=== PATIENT | female | born 1985 | race Caucasian/White ===

== ENCOUNTER 2018-11-18 16:24 | Emergency (ER) | payer BC, SELFPAY ==
[2018-11-18 16:25] VITALS: BP 164/99; PULSE 79; RESP 18; TEMP 36.4; O2SAT 97; BMI 54.9
[2018-11-18 16:36] VITALS: BP 153/102; PULSE 82; RESP 18; O2SAT 99
--- NOTE | 2018-11-18 16:52 | ED.VISSUMM ---
- ER Visit Summary Date of Service: 11/18/18 Chief Complaint: Anxiety History of Present Illness: The patient is a 33 F who presents with anxiety and states she is on an emotional roller coaster. Patient states her left her 2 days ago. She has been crying, had poor sleep, decreased p.o. intake. She has had good support from her parents who live across the street from her. She denies suicidal ideation. Patient does report falling down approximate 8 steps yesterday after losing her footing. She denies that this was an attempt to harm herself. She has mild pain over the posterior right thigh, but she states is able to ambulate without difficulty. Physical Examination: Vital signs significant for blood pressure of 153/102. Patient is sitting upright in bed. She is intermittently tearful. Is regular rate and rhythm. Lung sounds clear. Abdomen is soft nontender. Psychiatric evaluation reveals that she is adamantly tearful. She does appear slightly anxious. She denies suicidal or homicidal ideation. Test Results: [] Emergency Department Course and Treatment: Patient be given 1 mg of p.o. Ativan here. Should be given a prescription for a short course of medication. She was warned about the sedating side effects. We will provide her fourth phone numbers for both behavioral health as well as the counseling center for close follow-up. Treatment Plan: [] Disposition: Discharge Impression: Anxiety This note was generated with [employer] dictation software. It may contain incorrect words, spelling, and punctuation that were not noted in review of the chart prior to signing ED Disposition - Plan for ED Patient: Referrals: Chris Randolph [Primary Care Provider] -
--- NOTE | 2018-11-18 16:56 | DCINST.ED_ITS ---
ED Disposition - Plan for ED Patient: Disposition: Home or Assisted Living Instructions: ED Stress React Prescriptions: Lorazepam [Ativan] 1 mg PO TID #10 tablet Referrals: Counseling,Center [GROUP OF PHYSICIANS] - Behavioral,Health [facility] [GROUP OF PHYSICIANS] - Tiffani Olivares MD [STAFF PHYSICIAN] -
[2018-11-18] MEDS: LORazepam 1 MG Tablet PO (17:01)
[2018-11-18 17:03] VITALS: BP 144/83; PULSE 78; RESP 18
== END 2018-11-18 17:27 | disposition home or self-care (01) ==
LOC: ED 17:20
PROVIDERS: Emergency Provider Emergency Medicine
DX: F41.9 Anxiety disorder, unspecified (principal); I10 Essential (primary) hypertension; Z72.0 Tobacco use; Z79.84 Long term (current) use of oral hypoglycemic drugs; Z79.899 Other long term (current) drug therapy
CPT/HCPCS: 99283

== ENCOUNTER → 2018-12-19 | Outpatient (CLI) | payer BC, SELFPAY ==
--- NOTE | 2018-12-19 16:45 | MRI_ITS ---
STUDY: MRI LUMBAR SPINE WITH AND WITHOUT CONTRAST REASON FOR EXAM: Female, 33 years old. Low back pain with right radiculopathy, postsurgical changes at L4-5 TECHNIQUE: Standardized fat and water weighted pulse sequences were obtained in the sagittal and axial planes. 20 IV Dotarem was administered for the contrast portion of the examination. COMPARISON: June 17, 2014 FINDINGS: T12-L1: Normal endplates. Normal disc height, hydration and morphology. Normal bilateral facet joints. Normal central canal and bilateral lateral recesses. Normal bilateral intervertebral neural foramina. Normal lumbar lordosis. There is no substantial scoliosis. Normal conus medullaris that terminates at T12-L1 L1-2: Normal endplates. Normal disc height, hydration and morphology. Normal bilateral facet joints. Normal central canal and bilateral lateral recesses. Normal bilateral intervertebral neural foramina. L2-3: Normal endplates. Normal disc height, hydration and morphology. Normal bilateral facet joints. Normal central canal and bilateral lateral recesses. Normal bilateral intervertebral neural foramina. L3-4: Normal endplates. Narrowed disc space with desiccation of the disc and minimal bulging of the annulus.. Normal bilateral facet joints. Normal central canal and bilateral lateral recesses. Minor bilateral neural foraminal encroachment. L4-5: Status post right laminectomy Normal endplates. Normal disc height, desiccation and mild annular bulge in association with prominent broad-based right paracentral/posterolateral disc protrusion. Bilateral facet arthropathy and thickening of ligamenta flava.. Mild narrowing of the central canal and moderate narrowing of the right lateral recess. Mild bilateral neuroforaminal encroachment. There is enhancing epidural fibrosis in the right anterior lateral epidural space following contrast injection. L5-S1: Normal endplates. Normal disc height, hydration and tiny broad-based central disc protrusion. Normal bilateral facet joints. Normal central canal and bilateral lateral recesses. Normal bilateral intervertebral neural foramina. Normal visualized sacral ala. Normal visualized paraspinous soft tissue structures. Findings are similar to that seen on prior study MRI/Spine Lumbar W/WO Contrast IMPRESSION: Postsurgical changes at L4-5 status post right laminectomy and microdiscectomy. Findings consistent with recurrent right paracentral/posterolateral disc protrusion creating stenosis of the right lateral recess and association with facet arthropathy and thickening of ligamenta flava.. There is also mild postsurgical epidural fibrosis Minimal bulging of the annulus at L3-4 and tiny broad-based central disc protrusion at L5-S1 Other findings as above Electronically Signed: Ellis Newell MD at 17:42 EDT , Service support ,
== END | disposition home or self-care (01) ==
PROVIDERS: Referring Provider Psychiatry & Neurology Pain Medicine; Visit Provider Psychiatry & Neurology Pain Medicine
DX: M51.26 Other intervertebral disc displacement, lumbar region (principal); M54.17 Radiculopathy, lumbosacral region
CPT/HCPCS: 72158; A9575

== ENCOUNTER 2019-03-26 14:34 | Emergency (ER) | payer BC, SELFPAY ==
[2019-03-26 14:34] VITALS: BP 161/87; PULSE 94; RESP 18; TEMP 36.8; O2SAT 99; BMI 49.0
--- NOTE | 2019-03-26 15:16 | ED.DCSUM_ITS ---
History of Present Illness Chief Complaint: Diarrhea Informant: Patient, PCP - Abdominal Pain/Flank Pain Onset: Days - 3 Context: Gradual Onset Timing: Intermittent Quality: Cramping Location: Diffuse Current Severity: Mild Maximum Severity: Moderate Relieved by: - - having BM - Nausea/Vomiting/Emesis GI Symptom: Nausea. Negative for: Vomiting Onset: Days - 3 Severity: Moderate - Diarrhea/Melena/Hematochezia GI Symptom: Diarrhea. Negative for: Melena, Hematochezia Onset: Days - 3 Stool Quality: Watery. Negative for: Mucous, Black, Maroon, MATI per rectum Severity: Severe Associated Symptoms: - - decreased UOP. Negative for: Dysuria, Frequency, Hematuria, Urgency Narrative: Patient has had profuse watery diarrhea around 10-15 episodes per day for the last 3 days. She has not been drinking very much because of feeling nauseated but she has not been vomiting. She was in the doctor's office today being evaluated for this and her blood pressure was 99/68, she has urinated very little today and so they sent her in for fluids out of fear of dehydration. Patient states she is feeling a little bit lightheaded at times but no near syncopal episodes. She has had no known sick contacts. No travel out of the area or country. She drinks city water, not well water and has not been drinking any water from the ground or camping lately. No recent antibiotics for any reason, nor hospitalization or surgery. No fevers. No history of this or other GI disorders except for reflux for which she takes medication. She also takes lisinopril for blood pressure which she has been compliant with. - Past Medical History (1) Hypertension Status: Chronic (2) GERD (gastroesophageal reflux disease) Status: Chronic Past Medical History - Allergies and Home Meds Allergies/Adverse Reactions: Allergies naproxen Allergy (Verified 11/18/18 16:27) Itching adhesive Adverse Reaction (Verified 03/26/19 14:36) Other amoxicillin [Amoxicillin] Adverse Reaction (Verified 11/18/18 16:27) Rash Primary Care Physician: [facility] Doctor,Out of [NON-STAFF] - 1-2 Days if not improving Lives: With Family Smoking Status: Never smoker Drugs: None Review of Systems General: Reports: Malaise. Denies: Chills, Fever, Sweats Eyes: Denies: Visual changes - bilaterally, Diplopia ENT: Denies: Rhinorrhea, Sore throat Cardiovascular: Denies: Chest pain, Palpitations Respiratory: Denies: Dyspnea, Cough, Dyspnea on exertion Gastrointestinal: Reports: Abdominal pain, Nausea, Diarrhea. Denies: Vomiting, Melena, Hematochezia Genitourinary: Denies: Dysuria, Hematuria, Frequency Musculoskeletal: Reports: Back pain - Chronic, unchanged. Denies: Extremity Pain Skin: Denies: Rash, Wounds Neurological: Denies: Headache, Weakness, Numbness Physical Exam Vital Signs/Narrative: Vital Signs Temp Pulse Resp BP Pulse Ox 03/26/19 14:34 98.2 F 94 18 161/87 H 99 Inital Vital Signs reviewed: Yes General: Well nourished, Well developed, Obese, No Acute Distress Head: Normocephalic, Atraumatic Eyes: Perrl, EOMI ENT: Moist mucous membranes, No rhinorrhea Neck: Supple, Nontender Cardiovascular: Regular rate, Regular rhythm, No murmurs. Negative for: Tachycardia Respiratory: No distress, CTA bilaterally, Chest nontender Abdomen: Soft, Nontender, Nondistended, Normal bowel sounds Back: Nontender, Normal Inspection. Negative for: CVA tenderness Extremities: Nontender, No edema. Negative for: Calf Tenderness Skin: Normal color, No rash, No Trauma Neurological: Alert, Oriented x3, Cranial nerves II-XII grossly intact, Normal Strength, Normal Sensation Psychological: Normal affect, Normal Mood Diagnostic/Tx/Re-eval Laboratory Tests 03/26/19 03/26/19 Range/Units 15:20 15:13 WBC 7.8 (4.4-11.0) K/mm3 RBC 4.73 (4.2-5.4) M/mm3 Hgb 14.2 (12.0-15.0) g/dL Hct 43.0 (37-47) % MCV 90.9 (81-99) fL MCH 30.0 (27.0-32.0) pg MCHC 33.0 (32-36) g/dL RDW Std Deviation 44.2 H (35.1-43.9) fl RDW Coeff of Rob 13.5 (11.6-14.6) % Plt Count 269 (150-450) K/mm3 MPV 10.1 (6.2-12.0) fl Immature Gran % (Auto) 0.300 (0.0-0.9) % Neut % (Auto) 72.6 H (47-70) % Lymph % (Auto) 19.2 (19-41) % [place] % (Auto) 6.3 (0-10) % Eos % (Auto) 1.2 (0-5) % Baso % (Auto) 0.4 (0-1) % Absolute Neuts (auto) 5.7 (2.0-7.7) X10^3/uL Absolute Lymphs (auto) 1.49 (0.83-4.51) X10^3/uL Nucleated RBC % 0 (0-5) % Sodium 141 (136-145) mmol/L Potassium 3.9 (3.5-5.1) mmol/L Chloride 107 (98-107) mmol/L Carbon Dioxide 27.0 (21.0-32.0) mmol/L Anion Gap 7 (5-15) BUN 10 (7-18) mg/dL Creatinine 0.86 (0.55-1.02) mg/dL Estim Creat Clear Calc 78.84 ml/min Est GFR (MDRD) Af Amer 97 (>60) mL/min Est GFR (MDRD) Non-Af 80 (>60) mL/min BUN/Creatinine Ratio 11.7 (10-20) RATIO Glucose 85 (74-106) mg/dL Calcium 9.0 (8.5-10.1) mg/dL Total Bilirubin 0.30 (0.20-1.00) mg/dL AST 16 (15-37) U/L ALT 23 (13-56) U/L Alkaline Phosphatase 56 (45-117) U/L Total Protein 7.5 (6.4-8.2) g/dL Albumin 3.8 (3.2-5.0) g/dL Globulin 3.7 (2.2-4.2) g/dL Albumin/Globulin Ratio 1.0 (0.9-2.4) RATIO - Medical Decision Making Labs are all normal including white blood count and liver enzymes. She did have diarrhea here and we collected and sent to the lab for an enteric bacterial panel but it is not going to be run while the patient is here. She can follow- up for results of that. In the meantime I think she is safe to take Imodium as needed, in addition to Bentyl which we gave her here and really helped her discomfort, after IV fluid she is feeling much better. Even before the fluids her blood pressure was in the 160s, afterwards it is in the 130s, she clearly is feeling better, ambulatory, and stable for discharge. Possible viral etiology, she has no red flag historical elements since can be safely discharged and treated with supportive care. ED Disposition - Plan for ED Patient: Disposition: Home or Assisted Living Diagnosis: Acute diarrhea, Mild dehydration Instructions: VOMITING AND DIARRHEA, Nonspecific (Adult) Prescriptions: Dicyclomine HCl [Bentyl] 20 mg PO . Q4-6H PRN #20 cap PRN Reason: abdominal pain Prescription Printed Referrals: [facility] Doctor,Out of [NON-STAFF] - 1-2 Days if not improving Additional Instructions: Okay to use Imodium as needed for diarrhea.
[2019-03-26 15:28] VITALS: BP 130/77; PULSE 87; RESP 18; O2SAT 99
[2019-03-26] MEDS: Dicyclomine 10 MG Capsule 20 MG PO (15:31)
[2019-03-26] MEDS: Ondansetron 4 MG/2 ML Vial IV (15:31)
[2019-03-26] MEDS: 0.9% Normal Saline 1,000 ML 999 ML IV (15:31)
[2019-03-26 15:34] LABS: Absolute Lymphocyte Count 1.49 X10^3/uL (0.83-4.51); Absolute Neutrophil Count 5.7 X10^3/uL (2.0-7.7); Basophil# 0.03 X10^3/uL; Basophil% 0.4 % (0-1); Eosinophil# 0.09 X10^3/uL; Eosinophils% 1.2 % (0-5); Hemoglobin 14.2 g/dL (12.0-15.0); Lymphocyte # 1.49 X10^3/ul (4.0); Lymphocyte % 19.2 % (19-41); Mean Corpuscular Volume 90.9 fL (81-99); Mean Platelet Vol. 10.1 fl (6.2-12.0); Monocyte# 0.49 X10^3/uL; Monocyte% 6.3 % (0-10); NRBC Flagged by Analyzer 0 % (0-5); Neutrophil # 5.66 X10^3/uL (2.7-7.7); Neutrophil % 72.6 % (47-70); Platelet Count 269 K/mm3 (150-450); RBC Distribution Width CV 13.5 % (11.6-14.6); RBC Distribution Width SD 44.2 fl (35.1-43.9); Red Blood Count 4.73 M/mm3 (4.2-5.4); White Blood Count 7.8 K/mm3 (4.4-11.0)
[2019-03-26 15:55] LABS: AST(SGOT) 16 U/L (15-37); Alanine Aminotransfer ALT/SGPT 23 U/L (13-56); Albumin, Serum 3.8 g/dL (3.2-5.0); Alkaline Phosphatase 56 U/L (45-117); Anion Gap 7 (5-15); BUN 10 mg/dL (7-18); BUN/Creat Ratio 11.7 RATIO (10-20); Chloride 107 mmol/L (98-107); Creatinine, Serum 0.86 mg/dL (0.55-1.02); EST Glomerular Filtration Rate 80 mL/min (>60); Est Glom Filt Rate - Afr Amer 97 mL/min (>60); Estimated Creatinine Clearance 78.84 ml/min; Globulin 3.7 g/dL (2.2-4.2); Glucose 85 mg/dL (74-106); Potassium 3.9 mmol/L (3.5-5.1); Protein, Total 7.5 g/dL (6.4-8.2); Sodium Level 141 mmol/L (136-145)
[2019-03-26 17:08] VITALS: BP 132/74; PULSE 87; RESP 18; O2SAT 98
[2019-03-26 18:44] VITALS: BP 117/64; PULSE 87; RESP 18; O2SAT 98
== END 2019-03-26 18:45 | disposition home or self-care (01) ==
PROVIDERS: Emergency Provider Emergency Medicine
DX: R19.7 Diarrhea, unspecified (principal); E86.0 Dehydration; R10.9 Unspecified abdominal pain; E66.9 Obesity, unspecified; I10 Essential (primary) hypertension; K21.9 Gastro-esophageal reflux disease without esophagitis; M54.9 Dorsalgia, unspecified; G89.29 Other chronic pain; Z79.899 Other long term (current) drug therapy
CPT/HCPCS: 80053; 85025; 96361; 96374; 99283; J7030; J2405

== ENCOUNTER 2019-04-02 00:20 | Emergency (ER) | payer BC, SELFPAY ==
[2019-04-02 00:20] VITALS: BP 149/85; PULSE 88; RESP 15; TEMP 36.5; O2SAT 100; BMI 48.2
--- NOTE | 2019-04-02 00:38 | ED.DCSUM_ITS ---
- ER Visit Summary Date of Service: 04/02/19 Chief Complaint: Diarrhea, hematochezia History of Present Illness: The patient is a 34 F who presents with a single episode of bright red blood per rectum. Last week she was having severe diarrhea was sent in due to concerns for dehydration. Her blood pressure was normal here although it had been reported as borderline low at an office visit. She her laboratory studies were unremarkable. Enteric pathogen panel for stool was ordered but she had no diarrhea while here. She was discharged with a prescription but says she had no diarrhea after discharge until today she had an episode with some bright red blood. She denies any abdominal pain. No nausea vomiting or fevers. Physical Examination: Afebrile vitals unremarkable No distress Heart regular rate In no respiratory distress Abdomen soft nontender nondistended Rectal exam is nontender no gross bleeding no fissure no hemorrhoid Test Results: CBC BMP unremarkable and INR normal. Emergency Department Course and Treatment: Patient has no evidence of active gross bleeding. Her hemoglobin is normal. She has normal heart rate. She does not have any evidence of ongoing serious bleeding or hemorrhage. She was advised to follow-up as an outpatient. She was advised she may need further work-up such as colonoscopy. She does understand to return for new or worsening symptoms and was instructed on specific signs and symptoms to monitor for and was discharged home. Treatment Plan: [] Disposition: Discharge Impression: Stable rectal bleeding This note was generated with [employer] dictation software. It may contain incorrect words, spelling, and punctuation that were not noted in review of the chart prior to signing ED Disposition - Plan for ED Patient: Referrals: [facility] [Other]
[2019-04-02 00:54] LABS: Absolute Lymphocyte Count 2.42 X10^3/uL (0.83-4.51); Absolute Neutrophil Count 4.2 X10^3/uL (2.0-7.7); Basophil# 0.04 X10^3/uL; Basophil% 0.5 % (0-1); Eosinophil# 0.13 X10^3/uL; Eosinophils% 1.8 % (0-5); Hematocrit 36.3 % (37-47); Hemoglobin 12.1 g/dL (12.0-15.0); Lymphocyte # 2.42 X10^3/ul (4.0); Lymphocyte % 32.9 % (19-41); Mean Corp Hgb Conc 33.3 g/dL (32-36); Mean Corpuscular Hgb 30.7 pg (27.0-32.0); Mean Corpuscular Volume 92.1 fL (81-99); Monocyte# 0.57 X10^3/uL; Monocyte% 7.7 % (0-10); NRBC Flagged by Analyzer 0 % (0-5); Neutrophil # 4.18 X10^3/uL (2.7-7.7); Neutrophil % 56.8 % (47-70); Platelet Count 206 K/mm3 (150-450); RBC Distribution Width CV 13.6 % (11.6-14.6); RBC Distribution Width SD 46.3 fl (35.1-43.9); Red Blood Count 3.94 M/mm3 (4.2-5.4); White Blood Count 7.4 K/mm3 (4.4-11.0)
[2019-04-02 01:03] LABS: Prothrombin Time (Protime)PT. 13.4 SECONDS (11.7-14.9)
[2019-04-02 01:08] LABS: Anion Gap 5 (5-15); BUN 11 mg/dL (7-18); BUN/Creat Ratio 12.7 RATIO (10-20); Calcium,Total 8.2 mg/dL (8.5-10.1); Chloride 108 mmol/L (98-107); Creatinine, Serum 0.87 mg/dL (0.55-1.02); EST Glomerular Filtration Rate 79 mL/min (>60); Est Glom Filt Rate - Afr Amer 95 mL/min (>60); Estimated Creatinine Clearance 77.94 ml/min; Glucose 110 mg/dL (74-106); Potassium 3.5 mmol/L (3.5-5.1); Sodium Level 141 mmol/L (136-145)
--- NOTE | 2019-04-02 01:18 | ED.DEP ---
ED Disposition - Plan for ED Patient: Instructions: RECTAL BLEED, Stable Referrals: [facility] [Other]
[2019-04-02 01:36] VITALS: BP 149/85; PULSE 88; RESP 15; O2SAT 100
== END 2019-04-02 01:36 | disposition home or self-care (01) ==
LOC: ED 01:16
PROVIDERS: Emergency Provider Emergency Medicine
DX: K62.5 Hemorrhage of anus and rectum (principal); R19.7 Diarrhea, unspecified; K21.9 Gastro-esophageal reflux disease without esophagitis; Z90.49 Acquired absence of other specified parts of digestive tract
CPT/HCPCS: 80048; 85025; 85610; 99282

== ENCOUNTER 2020-06-10 22:39 | Emergency (ER) | payer BC, SELFPAY ==
[2020-06-10 22:40] VITALS: BP 160/92; PULSE 70; RESP 20; TEMP 36.8; O2SAT 100; BMI 47.3
--- NOTE | 2020-06-10 22:56 | RAD_ITS ---
STUDY: X-RAY CHEST REASON FOR EXAM: Female, 35 years old. CP WITH PALPITATIONS X 1 DAY TECHNIQUE: Single AP portable view of the chest. COMPARISON: None. FINDINGS: The lungs are clear and expanded. There is no demonstrated pleural abnormality. Normal size heart. Normal mediastinum and dionicio. Normal visualized pulmonary arteries. Normal visualized aortic arch and descending thoracic aorta. Normal visualized thoracic spine. Normal visualized ribs, clavicles, and shoulders. There is no demonstrated abnormality of the visualized soft tissue structures of the upper abdomen. RAD/Chest 1 View (Portable) IMPRESSION: Normal x-ray examination of the chest. Electronically Signed: Leandra Allen MD at 23:20 EDT Tel , Service support ,
--- NOTE | 2020-06-10 22:56 | EKG12_ITS ---
Test Reason : CP Blood Pressure : / mmHG Vent. Rate : 064 BPM Atrial Rate : 064 BPM P-R Int : 112 ms QRS Dur : 088 ms QT Int : 406 ms P-R-T Axes : 032 035 036 degrees QTc Int : 418 ms Normal sinus rhythm Normal ECG Confirmed by AYAAN CALI, JEFF ([id number]), editor department AIMEE ACHARYA ([id number]) on 06/16/2020 8:16:54 A M Referred By: AKBAR Confirmed By:KAMILAH KUO MD
--- NOTE | 2020-06-10 22:57 | ED.DCSUM_ITS ---
History of Present Illness Chief Complaint: Palpitations Informant: Patient Narrative: 35-year-old female with past medical history of psoriasis presents with palpitations. States that 2 days ago when they were coming up from [facility] she felt palpitations. States that she felt lightheaded. Patient felt well the next day but then today was feeling similar episodes. Denies any chest pain. Denies any shortness of breath, nausea, vomiting, diaphoresis. Denies any recent long trips, DVT, pulmonary embolism in the past. Denies any fever, chills, cough. Past Medical History - Allergies and Home Meds Allergies/Adverse Reactions: Allergies naproxen Allergy (Verified 06/10/20 22:39) Itching adhesive Adverse Reaction (Verified 06/10/20 22:39) Other amoxicillin [Amoxicillin] Adverse Reaction (Verified 06/10/20 22:39) Rash Primary Care Physician: NOT,DEFINED [NON-STAFF] - Past Medical History: - - psoriasis Surgical History: cholecystectomy Lives: With Family Alcohol: None Drugs: None Review of Systems General: Denies: Chills, Fever, Sweats Eyes: Denies: Visual changes - bilaterally, Diplopia ENT: Denies: Rhinorrhea, Sore throat Cardiovascular: Reports: Palpitations. Denies: Chest pain Respiratory: Denies: Dyspnea, Cough, Dyspnea on exertion Gastrointestinal: Denies: Abdominal pain, Nausea, Vomiting, Diarrhea, Melena, Hematochezia Genitourinary: Denies: Dysuria, Hematuria, Frequency Musculoskeletal: Denies: Back pain, Extremity Pain Skin: Denies: Rash, Wounds Neurological: Denies: Headache, Weakness, Numbness Physical Exam Vital Signs/Narrative: Vital Signs Temp Pulse Resp BP Pulse Ox 06/10/20 22:40 98.2 F 70 20 H 160/92 H 100 Inital Vital Signs reviewed: Yes General: Well nourished, Well developed, No Acute Distress Head: Normocephalic, Atraumatic Eyes: Perrl, EOMI ENT: Moist mucous membranes, No rhinorrhea Neck: Supple, Nontender Cardiovascular: Regular rate, Regular rhythm, No murmurs Respiratory: No distress, CTA bilaterally, Chest nontender Abdomen: Soft, Nontender, Nondistended, Normal bowel sounds Back: Nontender, Normal Inspection Extremities: Nontender, No edema Skin: Normal color, No rash Neurological: Alert, Oriented x3, Cranial nerves II-XII grossly intact, Normal Strength, Normal Sensation Psychological: Normal affect, Normal Mood Diagnostic/Tx/Re-eval Chest X-Ray - ED: 1 View, Normal Clinical Impression(s) from Imaging Studies Chest X-Ray 06/10/20 22:56 IMPRESSION: Normal x-ray examination of the chest. Electronically Signed: Leandra Allen MD at 23:20 EDT Tel , Service support , Laboratory Data 06/10/20 06/10/20 06/10/20 22:45 22:45 23:15 WBC 7.0 RBC 4.52 Hgb 13.1 Hct 40.3 MCV 89.2 MCH 29.0 MCHC 32.5 RDW Std Deviation 45.7 H RDW Coeff of Rob 14.2 Plt Count 299 MPV 11.2 Immature Gran % (Auto) 0.300 Neut % (Auto) 54.8 Lymph % (Auto) 35.4 [place] % (Auto) 7.2 Eos % (Auto) 1.7 Baso % (Auto) 0.6 Absolute Neuts (auto) 3.8 Absolute Lymphs (auto) 2.47 Nucleated RBC % 0 Sodium 147 H Potassium 4.0 Chloride 114 H Carbon Dioxide 29.0 Anion Gap 4 L BUN 12 Creatinine 1.01 Estim Creat Clear Calc 66.49 Est GFR (MDRD) Af Amer 80 Est GFR (MDRD) Non-Af 66 BUN/Creatinine Ratio 11.9 Glucose 86 Calcium 8.3 L Total Bilirubin 0.30 AST 14 L ALT 15 Alkaline Phosphatase 87 Troponin I < 0.015 Total Protein 7.3 Albumin 3.5 Globulin 3.8 Albumin/Globulin Ratio 0.9 Urine Color Yellow Urine Clarity Clear Urine pH 7.0 Ur Specific [place] 1.010 Urine Protein Negative Urine Glucose (UA) Normal Urine Ketones Negative Urine Occult Blood Negative Urine Nitrite Negative Urine Bilirubin Negative Urine Urobilinogen Normal Ur Leukocyte Esterase 25 H Urine RBC 0 SEEN Urine WBC 0-5 SEEN Ur Squamous Epith Cells 0-5 SEEN Urine Bacteria 0 SEEN Urine Mucus 0 SEEN Urine Test Negative - Rhythm Strip Rhythm Strip: Sinus Rhythm Rate: 64 Ectopy: None - EKG Initial EKG Interpretation: Sinus Rhythm - Sinus rhythm at 64 bpm. MO interval of 112 ms. QTC of 418 ms. No evidence of ST elevation or depression at this time. - Medical Decision Making Appears well and nontoxic. Vital signs within normal limits. EKG nonischemic. Troponin and other lab work within normal limits. Chest x-ray negative. Unclear the cause of the patient's palpitations but she has had no arrhythmias during her time here in the emergency department. Will be discharged to follow- up with her primary care. Advised on possible Holter monitor. Asked to return for new or worsening symptoms. Patient agreeable and discharged home in stable condition. 1. Palpitations 2. Dizziness ED Disposition - Plan for ED Patient: Disposition: Home or Assisted Living Instructions: ED Palpitations Referrals: Celsa Strickland DO [STAFF PHYSICIAN] - 2 Days
--- NOTE | 2020-06-10 22:59 | ED.RN ---
NO OLD EKGS IN MUSE
[2020-06-10 23:07] LABS: Absolute Lymphocyte Count 2.47 X10^3/uL (0.83-4.51); Absolute Neutrophil Count 3.8 X10^3/uL (2.0-7.7); Basophil# 0.04 X10^3/uL; Basophil% 0.6 % (0-1); Eosinophil# 0.12 X10^3/uL; Eosinophils% 1.7 % (0-5); Hematocrit 40.3 % (37-47); Hemoglobin 13.1 g/dL (12.0-15.0); Lymphocyte # 2.47 X10^3/ul (4.0); Lymphocyte % 35.4 % (19-41); Mean Corp Hgb Conc 32.5 g/dL (32-36); Mean Corpuscular Volume 89.2 fL (81-99); Mean Platelet Vol. 11.2 fl (6.2-12.0); Monocyte% 7.2 % (0-10); NRBC Flagged by Analyzer 0 % (0-5); Neutrophil # 3.82 X10^3/uL (2.7-7.7); Neutrophil % 54.8 % (47-70); Platelet Count 299 K/mm3 (150-450); RBC Distribution Width CV 14.2 % (11.6-14.6); RBC Distribution Width SD 45.7 fl (35.1-43.9); Red Blood Count 4.52 M/mm3 (4.2-5.4)
[2020-06-10 23:21] LABS: Bacteria 0 SEEN /hpf (None Seen); Mucous, Urine 0 SEEN /hpf (<or=2+); Red Blood Cells-Urine 0 SEEN /hpf (0-5)
[2020-06-10 23:22] LABS: ALB/GLOB Ratio 0.9 RATIO (0.9-2.4); AST(SGOT) 14 U/L (15-37); Alanine Aminotransfer ALT/SGPT 15 U/L (13-56); Albumin, Serum 3.5 g/dL (3.2-5.0); Alkaline Phosphatase 87 U/L (45-117); Anion Gap 4 (5-15); BUN 12 mg/dL (7-18); BUN/Creat Ratio 11.9 RATIO (10-20); Calcium,Total 8.3 mg/dL (8.5-10.1); Chloride 114 mmol/L (98-107); Creatinine, Serum 1.01 mg/dL (0.55-1.02); EST Glomerular Filtration Rate 66 mL/min (>60); Est Glom Filt Rate - Afr Amer 80 mL/min (>60); Estimated Creatinine Clearance 66.49 ml/min; Globulin 3.8 g/dL (2.2-4.2); Glucose 86 mg/dL (74-106); Protein, Total 7.3 g/dL (6.4-8.2); Sodium Level 147 mmol/L (136-145)
[2020-06-10 23:32] LABS: Internal QC Validated? YES +Cl - CLEAR BKGD
[2020-06-10 23:33] LABS: Pregnancy, Urine Negative Negative
[2020-06-10 23:35] LABS: Color, Urine Yellow (Yellow); Glucose, Dipstick Normal (Normal); Ketone-Dipstick Negative (Negative); Leukocyte Esterase-Dipstick 25 /ul (Negative); Nitrite-Dipstick Negative (Negative); Occult Blood-Urine Negative /ul (Negative); Protein-Dipstick Negative (Negative); Urine Bilirubin Dipstick Negative (Negative); Urine Clarity Clear (Clear); Urine Urobilinogen Normal (Normal)
[2020-06-10 23:40] LABS: White Blood Cells 0-5 SEEN /hpf (0-5)
[2020-06-10 23:41] LABS: Squamous Epithelial Cells - UA 0-5 SEEN /hpf (5-10)
[2020-06-10 23:54] VITALS: BP 154/78; PULSE 56; RESP 20; O2SAT 99
== END 2020-06-10 23:55 | disposition home or self-care (01) ==
PROVIDERS: Emergency Provider Emergency Medicine
DX: R00.2 Palpitations (principal); R42 Dizziness and giddiness; L40.9 Psoriasis, unspecified
CPT/HCPCS: 71045; 80053; 81001; 81025; 84484; 85025; 93005; 99281; A4216

== ENCOUNTER 2021-11-03 11:55 | Outpatient (CLI) | payer BC, SELFPAY ==
[2021-11-03 15:32] LABS: Absolute Lymphocyte Count 2.01 X10^3/uL (0.83-4.51); Absolute Neutrophil Count 2.5 X10^3/uL (2.0-7.7); Basophil# 0.05 X10^3/uL; Eosinophil# 0.27 X10^3/uL; Eosinophils% 5.1 % (0-5); Hematocrit 41.8 % (37-47); Hemoglobin 13.7 g/dL (12.0-15.0); Lymphocyte # 2.01 X10^3/ul (0.83-4.51); Lymphocyte % 38.3 % (19-41); Mean Corp Hgb Conc 32.8 g/dL (32-36); Mean Corpuscular Volume 88.6 fL (81-99); Mean Platelet Vol. 11.1 fl (6.2-12.0); Monocyte# 0.43 X10^3/uL; Monocyte% 8.2 % (0-10); NRBC Flagged by Analyzer 0 % (0-5); Neutrophil # 2.47 X10^3/uL (2.7-7.7); Platelet Count 218 K/mm3 (150-450); RBC Distribution Width CV 13.6 % (11.6-14.6); RBC Distribution Width SD 44.2 fl (35.1-43.9); Red Blood Count 4.72 M/mm3 (4.2-5.4); White Blood Count 5.3 K/mm3 (4.4-11.0)
[2021-11-03 15:53] LABS: ALB/GLOB Ratio 0.9 RATIO (0.9-2.4); AST(SGOT) 19 U/L (15-37); Alanine Aminotransfer ALT/SGPT 21 U/L (13-56); Albumin, Serum 3.3 g/dL (3.2-5.0); Alkaline Phosphatase 53 U/L (45-117); Anion Gap 3 (5-15); BUN 10 mg/dL (7-18); BUN/Creat Ratio 13.7 RATIO (10-20); Calcium,Total 8.4 mg/dL (8.5-10.1); Chloride 110 mmol/L (98-107); Creatinine, Serum 0.73 mg/dL (0.55-1.02); EST Glomerular Filtration Rate 95 mL/min (>60); Est Glom Filt Rate - Afr Amer 115 mL/min (>60); Globulin 3.7 g/dL (2.2-4.2); Glucose 86 mg/dL (74-106); Potassium 3.5 mmol/L (3.5-5.1); Sodium Level 142 mmol/L (136-145)
[2021-11-06 03:07] LABS: QNTFERON TB Mitogen Value > 10.00 IU/mL (.); QNTFERON TB Nil Value 0.23 IU/mL (.); QNTFERON TB1+ Ag Value 0.05 IU/mL (.); QNTFERON TB2+ Ag Value 0.09 IU/mL (.)
[2021-11-06 13:49] LABS: Hepatitis B Core Ab Total Negative (Negative)
[2021-11-06 13:50] LABS: QNTIFERON TB Positive Criteria Negative (Negative)
== END 2021-11-03 23:59 | disposition home or self-care (01) ==
LOC: MTLAB 11:59
PROVIDERS: Referring Provider Dermatology; Visit Provider Dermatology
DX: L40.0 Psoriasis vulgaris (principal); L40.59 Other psoriatic arthropathy; Z79.899 Other long term (current) drug therapy
CPT/HCPCS: 36415; 80053; 85025; 86480; 86704

== ENCOUNTER → 2023-07-05 | Outpatient (CLI) | payer BC, SELFPAY ==
--- NOTE | 2023-07-05 13:54 | RAD_ITS ---
INDICATION: PAIN EXAMINATION/TECHNIQUE: X-RAY - XR Chest 2 Views COMPARISON: June 10, 2020. FINDINGS: LINES/DEVICES: None. LUNGS: No consolidation, edema or effusion. No pneumothorax. MEDIASTINUM AND CARDIOVASCULAR STRUCTURES: Cardiac silhouette not enlarged. BONES AND SOFT TISSUES: Unremarkable. Right upper quadrant surgical clips are present. RAD/Chest PA and Lateral IMPRESSION: No radiographic evidence of acute cardiopulmonary disease. Electronically Signed: Nas Posey MD at 23:09 EST ,
[2023-07-05 17:39] LABS: Absolute Lymphocyte Count 2.01 X10^3/uL (0.83-4.51); Absolute Neutrophil Count 3.5 X10^3/uL (2.0-7.7); Basophil# 0.05 X10^3/uL; Basophil% 0.8 % (0-1); Eosinophil# 0.27 X10^3/uL; Eosinophils% 4.4 % (0-5); Hematocrit 42.8 % (37-47); Hemoglobin 13.8 g/dL (12.0-15.0); Lymphocyte # 2.01 X10^3/ul (0.83-4.51); Lymphocyte % 32.5 % (19-41); Mean Corp Hgb Conc 32.2 g/dL (32-36); Mean Corpuscular Hgb 29.9 pg (27.0-32.0); Mean Corpuscular Volume 92.8 fL (81-99); Monocyte# 0.39 X10^3/uL; Monocyte% 6.3 % (0-10); NRBC Flagged by Analyzer 0 % (0-5); Neutrophil # 3.46 X10^3/uL (2.7-7.7); Neutrophil % 55.8 % (47-70); Platelet Count 230 K/mm3 (150-450); RBC Distribution Width CV 13.8 % (11.6-14.6); Red Blood Count 4.61 M/mm3 (4.2-5.4); White Blood Count 6.2 K/mm3 (4.4-11.0)
[2023-07-05 17:56] LABS: ALB/GLOB Ratio 0.9 RATIO (0.9-2.4); AST(SGOT) 21 U/L (15-37); Alanine Aminotransfer ALT/SGPT 22 U/L (13-56); Albumin, Serum 3.4 g/dL (3.2-5.0); Alkaline Phosphatase 58 U/L (45-117); Anion Gap 3 (5-15); BUN 9 mg/dL (7-18); BUN/Creat Ratio 12.6 RATIO (10-20); CRP 5.23 mg/L (0.0-3.0); Calcium,Total 8.8 mg/dL (8.5-10.1); Chloride 108 mmol/L (98-107); Creatinine, Serum 0.71 mg/dL (0.55-1.02); EST Glomerular Filtration Rate 97 mL/min (>60); Est Glom Filt Rate - Afr Amer 117 mL/min (>60); Globulin 3.8 g/dL (2.2-4.2); Glucose 80 mg/dL (74-106); Potassium 3.9 mmol/L (3.5-5.1); Protein, Total 7.2 g/dL (6.4-8.2); Rheumatoid Factor < 10.0 IU/mL (<15); Sodium Level 140 mmol/L (136-145)
[2023-07-05 18:15] LABS: Hepatitis B Surface Antibody Non-Reactive; Hepatitis B Surface Antigen Non-Reactive (Nonreactive)
[2023-07-05 18:21] LABS: Erythrocyte Sedimentation Rate 6 mm/hr (0-30)
[2023-07-07 12:09] LABS: ANTINUCLEAR ANTIBODIES DIRECT Negative (Negative)
[2023-07-07 16:09] LABS: CCP IgG Antibodies 4 units (0-19); QNTFERON TB Mitogen Value > 10.00 IU/mL (.); QNTFERON TB Nil Value 0.01 IU/mL (.); QNTFERON TB1+ Ag Value 0.02 IU/mL (.); QNTFERON TB2+ Ag Value 0.07 IU/mL (.); QNTIFERON TB Positive Criteria Negative (Negative)
== END | disposition home or self-care (01) ==
PROVIDERS: PCP Family Medicine; Referring Provider Internal Medicine Rheumatology; Visit Provider Internal Medicine Rheumatology
DX: L40.59 Other psoriatic arthropathy (principal); M79.7 Fibromyalgia; M51.37 Other intervertebral disc degeneration, lumbosacral region; M47.897 Other spondylosis, lumbosacral region; R51.9 Headache, unspecified; L40.8 Other psoriasis
CPT/HCPCS: 36415; 71046; 80053; 85025; 85652; 86038; 86140; 86200; 86431; 86480; 86706; 87340